=== PATIENT | female | born 1930 | race Two or more races ===

== ENCOUNTER 2019-05-29 14:53 | Emergency (ER) | payer OTHER, BC ==
[~2019-05-29] VITALS: Ht 139.7 cm; Wt 45.4 kg
[~2019-05-29 14:53] MED LIST: ADULT ASPIRIN81 MG; COZAAR25 MG; COZAAR50 MG; FLOVENT HFA10.6 GM; PRILOSEC10 MG; PROTONIX40 MG
[2019-05-29] MEDS ORDERED: LOSARTAN POTASS50 MG PO (15:11)
[2019-05-29] MEDS ORDERED: VITAMIN D-32000 UNIT (15:12)
[2019-05-29] MEDS ORDERED: MICROZIDE12.5 MG (15:12)
[2019-05-29] MEDS ORDERED: PEPCID AC20 MG (15:13)
[2019-05-29] MEDS ORDERED: TESSALON PERLE100 MG PO (16:42)
[2019-05-29] MEDS ORDERED: PROMETH-CODEIN 65 ML PO (16:42)
[2019-05-29] MEDS ORDERED: ZITHROMAX500 MG PO (16:42)
== END 2019-05-29 16:46 | disposition home or self-care (01) ==
LOC: ER 14:53
DX: J40 Bronchitis, not specified as acute or chronic (principal)